=== PATIENT | male | born 1960 | race African-American/Black ===

== ENCOUNTER 2017-06-20 13:06 | Emergency (ER) | payer OTHER, MEDICAID ==
[~2017-06-20] VITALS: Ht 182.9 cm; Wt 78.5 kg
[2017-06-20] MEDS ORDERED: IBUPROFEN 800800 M1 PO (13:23)
[2017-06-20] MEDS ORDERED: FOLIC ACID1 MG PO (13:23)
[2017-06-20] MEDS ORDERED: DROXIA300 MG PO (13:24)
[2017-06-20] MEDS ORDERED: PERCOCET 10-321 EACH PO (13:24)
[2017-06-20] MEDS ORDERED: CYCLOBENZAPRINE5 MG PO (14:09)
[2017-06-20 14:50] VITALS: BP 138/96
== END 2017-06-20 14:50 | disposition home or self-care (01) ==
LOC: M.ERS 13:06
DX: M54.5 Low back pain (principal); D57.1 Sickle-cell disease without crisis; Z96.649 Presence of unspecified artificial hip joint

== ENCOUNTER 2017-12-25 18:18 | Emergency (ER) | payer OTHER, MEDICAID ==
[~2017-12-25] VITALS: Ht 182.9 cm; Wt 83.5 kg
[~2017-12-25 18:18] MED LIST: CYCLOBENZAPRINE5 MG PO; DROXIA300 MG PO; FOLIC ACID1 MG PO; IBUPROFEN 800800 M1 PO; PERCOCET 10-321 EACH PO
[2017-12-25 20:25] LABS: ABSOLUTE BASOPHILS 0.1 thou/uL (0.0-0.2); ABSOLUTE EOSINOPHILS 0.2 thou/uL (0.0-0.7); ABSOLUTE LYMPHOCYTES 3.3 thou/uL (0.8-5.3); ABSOLUTE MONOCYTES 1.9 thou/uL (0.0-1.2); ABSOLUTE NEUTROPHILS 4.9 thou/uL (1.6-8.1); BASOPHILS 0.6 %; EOSINOPHILS 1.6 %; HEMATOCRIT 27.4 % (42.0-52.0); HEMOGLOBIN 9.6 gm/dL (14.0-18.0); LYMPHOCYTES 31.5 %; MCH 36.9 pg (26.0-34.0); MCV 105.4 fL (80.0-100.0); MONOCYTES 18.7 %; MPV 8.1 fl. (7.2-11.1); NUCLEATED RBCS 2 /100WBC; PLATELET COUNT* 237 thou/uL (150-400); POLYS 47.6 %; RDW-CV 14.6 % (10.5-14.5); WBC 10.4 thou/uL (4.0-11.0)
[2017-12-25 21:31] LABS: ESR (SEDRATE) 34 mm/hr (0-20)
[2017-12-25] MEDS ORDERED: CLEOCIN HCL300 MG PO (21:40)
[2017-12-25 22:03] VITALS: BP 142/93
== END 2017-12-25 21:59 | disposition home or self-care (01) ==
LOC: M.ERS 18:18
PROVIDERS: Nurse Practitioner Family
DX: T81.41XA Infection following a procedure, superficial incisional surgical site, initial encounter (principal); B99.8 Other infectious disease; D57.1 Sickle-cell disease without crisis; Y83.8 Other surgical procedures as the cause of abnormal reaction of the patient, or of later complication, without mention of misadventure at the time of the procedure; Y92.89 Other specified places as the place of occurrence of the external cause